=== PATIENT | female | born 1995 | race Caucasian/White ===

== ENCOUNTER 2016-09-09 15:25 | Emergency (ER) | payer OTHER ==
[~2016-09-09 15:25] MED LIST: MOBIC7.5 M1 PO; PERCOCET 5-3251 EACH PO; SERTRALINE100 MG PO; ZOFRAN ODT4 MG PO
[2016-09-09 15:36] VITALS: BP 123/78
--- NOTE | 2016-09-09 17:15 | ED NECK/BACK PAIN COMPLAINT ---
History of Present Illness General Chief Complaint: Low Back Pain/Injury Stated Complaint: WORK RELATED INJURY, INJURY TO BACK Source: patient Exam Limitations: no limitations Vital Signs & Intake/Output Vital Signs & Intake/Output Vital Signs Date Time Temp Pulse Resp B/P Pulse O2 O2 Flow FiO2 Ox Delivery Rate 09/09 1536 97.5 80 20 123/78 99 Allergies Coded Allergies: citalopram (RASH 12/04/15) hydrocodone (RASH 12/04/15) Reconcile Medications Cyclobenzaprine HCl 10 MG TABLET 1 TAB PO TID PRN MUSCLE RELAXANT MAY CAUSE DROWSINESS Diclofenac Sodium 75 MG TABLET.DR 1 TAB PO BID PRN pain/inflammation Meloxicam (Mobic) 7.5 MG TABLET 1 TAB PO DAILY pain Triage Note: PER PT HURT BACK THIS AM AT WORK NO NEURO DEFICITS. LMP 08/24 Triage Nurses Notes Reviewed? yes : No Patient currently breastfeeds: No HPI: Patient is a 21-year-old female presents complaining of left sided back pain. Patient was at work lifting approximately a 10-15 pound box when she felt a pull in the left side of her back. Pain gradually worsening. Pain is a sharp pain that worsens with movement and palpation. Pain is currently moderate. Patient was administered ibuprofen in triage with moderate improvement. Patient denies numbness, weakness, incontinence, abdominal pain, fall. (ROHIT PIERSON) Past History Travel History Traveled to [place] past 21 day No Medical History Any Pertinent Medical History? none Neurological: NONE EENT: NONE Cardiovascular: NONE Respiratory: NONE Gastrointestinal: NONE Hepatic: NONE Renal: NONE Musculoskeletal: NONE Psychiatric: NONE Endocrine: NONE Surgical History Surgical History: non-contributory Psychosocial History What is your primary language Occitan Tobacco Use: Never used Family History Hx Contributory? No (ROHIT PIERSON) Review of Systems Review of Systems Constitutional: Reports: no symptoms. Eyes: Reports: no symptoms. Ears, Nose, Throat, Mouth: Reports: no symptoms. Respiratory: Denies: cough, short of breath. Cardiovascular: Denies: chest pain. Gastrointestinal/Abdominal: Denies: abdominal pain, nausea, vomiting. Musculoskeletal: Reports: see HPI, back pain. Skin: Reports: no symptoms. Neurological/Psychological: Denies: headache, numbness, paresthesia. (ROHIT PIERSON) Physical Exam Physical Exam General Appearance: well developed/nourished, alert, awake Head: atraumatic, normal appearance Eyes: Bilateral: normal appearance, PERRL, EOMI. Ears, Nose, Throat, Mouth: hearing grossly normal, moist mucous membrane Neck: normal inspection, supple, full range of motion, no midline tenderness Respiratory: normal breath sounds, chest non-tender, no respiratory distress, lungs clear Cardiovascular: regular rate/rhythm Peripheral Pulses: 2+ dorsalis pedis (R), 2+ dorsalis pedis (L) Gastrointestinal: soft, non-tender Back: normal inspection, normal range of motion, left paraspinal tenderness inferior thoracic area Extremities: non-tender, normal range of motion Straight Leg Raising: Right: Negative. Left: Negative. DTR: Patellar: 2: L4 Right, L4 Left. Neurologic/Psych: no motor/sensory deficits, awake, alert, oriented x 3, normal gait, normal mood/affect Skin: intact, normal color, warm/dry (ROHIT PIERSON) Progress Differential Diagnosis: cauda equina syn, herniated disc, myofascial strain, pyelo/UTI, sciatica, spinal cord inj, T/L spine injury, ureterolithiasis Plan of Care: Orders Procedure Date/time Status URINE 09/09 1542 Complete Laboratory Tests 09/09/16 1640: Urine Test NEGATIVE No red flags on exam or by history. Imaging deferred. Will treat conservatively and have patient follow-up with occupational medicine. (ROHIT PIERSON) Departure Departure Time of Disposition: 172 Disposition: HOME OR SELF CARE Condition: Stable Clinical Impression Primary Impression: Acute thoracic myofascial strain Qualifiers: Encounter type: initial encounter Qualified Code: S29.019A - Strain of muscle and tendon of unspecified wall of thorax, initial encounter Referrals: PATIENT HAS NO PRIMARY CARE DR (PCP/Family) Additional Instructions: Rest, ice for 20 minutes 4-5 times a day for 2 days. After today switch to heat to the affected areas. Follow-up with occupational medicine within 1-2 days for recheck and reevaluation. Call in the morning for appointment. Return to the emergency room or if numbness, weakness, incontinence, or worsening of symptoms. Departure Forms: Customer Survey Employee Industrial Accident General Discharge Information Prescriptions: Current Visit Scripts Diclofenac Sodium 1 TAB PO BID PRN pain/inflammation #15 TAB Cyclobenzaprine HCl 1 TAB PO TID PRN MUSCLE RELAXANT #20 TAB MAY CAUSE DROWSINESS (BUSHRA MCKEON,ROHIT) PA/BRAKE TESTER Co-Sign Statement Statement: ED Attending supervision documentation- [] I saw and evaluated the patient. I have also reviewed all the pertinent lab results and diagnostic results. I agree with the findings and the plan of care as documented in the PA's/BRAKE TESTER's documentation. [X] I have reviewed the ED Record and agree with the PA's/BRAKE TESTER's documentation. [] Additions or exceptions (if any) to the PAs/BRAKE TESTER's note and plan are summarized below: [] (CHERELLE KEENE DO
[2016-09-09] MEDS ORDERED: CYCLOBENZAPRINE10 M1 PO (17:23)
[2016-09-09] MEDS ORDERED: DICLOFENAC SODI75 M2 PO (17:23)
== END 2016-09-09 17:33 ==
LOC: ERH 15:25
DX: S29.012A Strain of muscle and tendon of back wall of thorax, initial encounter (principal); X58.XXXA Exposure to other specified factors, initial encounter; Y93.9 Activity, unspecified; Y92.9 Unspecified place or not applicable
CPT/HCPCS: 81025